=== PATIENT | female | born 1990 | race Caucasian/White ===

== ENCOUNTER 2019-05-12 12:16 | Emergency (ER) | payer OTHER ==
[~2019-05-12] VITALS: Ht 177.8 cm; Wt 88.5 kg
[2019-05-12 12:18] VITALS: BP 122/82
--- NOTE | 2019-05-12 12:22 | NUR ---
Patient ambulated to bed 12. RN evaluating patient at bedside.
[2019-05-12 12:25] VITALS: BP 124/69
--- NOTE | 2019-05-12 12:35 | NUR ---
DR PIZARRO AT BEDSIDE
--- NOTE | 2019-05-12 12:47 | NUR ---
thight lift x 1 wk ago in [facility]---suture right inguinal area opened minimal sanguineous drainage at this time---pt adds she feels light headed . Pt awake ,alert,ambulatory ,pain level at o ,pt clean suture everyday. hx--transgender, rx--taking antibiotic
--- NOTE | 2019-05-12 13:14 | NUR ---
Patient discharged with v/s stable. Written and verbal after care instructions given and explained regarding wound care,pt alert , no c/o pain. Patient verbalized understanding. Ambulatory with steady gait. All questions addressed prior to discharge. Advised to follow up with PMD.
[2019-05-12 13:16] VITALS: BP 124/84
== END 2019-05-12 13:14 | disposition home or self-care (01) ==
LOC: MED 12:16
DX: T81.31XA Disruption of external operation (surgical) wound, not elsewhere classified, initial encounter (principal); F17.200 Nicotine dependence, unspecified, uncomplicated; Z98.890 Other specified postprocedural states; Y83.9 Surgical procedure, unspecified as the cause of abnormal reaction of the patient, or of later complication, without mention of misadventure at the time of the procedure; Y92.89 Other specified places as the place of occurrence of the external cause
CPT/HCPCS: 99283

== ENCOUNTER 2019-08-30 18:26 | Emergency (ER) | payer OTHER ==
[~2019-08-30] VITALS: Ht 175.3 cm; Wt 90.7 kg
[2019-08-30 18:28] VITALS: BP 143/69
[2019-08-30 18:44] VITALS: BP 143/69
== END 2019-08-30 18:43 | disposition home or self-care (01) ==
LOC: MED 18:26
DX: J20.9 Acute bronchitis, unspecified (principal)
CPT/HCPCS: 99283

== ENCOUNTER 2021-08-24 21:28 | Emergency (ER) | payer OTHER ==
[~2021-08-24] VITALS: Ht 177.8 cm; Wt 83.9 kg
[2021-08-24 21:46] VITALS: BP 125/85
--- NOTE | 2021-08-24 21:52 | NUR ---
PT SENT TO LOBBY WAITING FOR BED.
--- NOTE | 2021-08-24 22:54 | NUR ---
PT TAKEN TO BED 04.
--- NOTE | 2021-08-24 22:55 | NUR ---
PT REPORTS FEELING UNWELL. REPORTS ABD BLOATING, NAUSEA AND DIZZINESS. PT STATES SHE FEELS SHE WAS GOING TO PASS OUT. PT STATES SHE WAS A HEAVY DRINKER IN THE PAST AND BEGAN DRINKING ON August AGAIN. PT REPORTS BODY TINGLING. HX:BBL, ETOH RX:ALDACTONE AND ESTROGEN.
[2021-08-24] MEDS ORDERED: FAMOTIDINE 20 MG/2 ML VIAL IVP ONE (23:15)
[2021-08-24] MEDS ORDERED: NACL 0.9% 1,000 ML IV ONE (23:15)
--- NOTE | 2021-08-24 23:30 | NUR ---
X-Ray at bedside.
[2021-08-24 23:33] LABS: BASOPHILS % (AUTO) 0.5 % (0.0-2.0); EOSINOPHILS % (AUTO) 0.7 % (0.0-4.0); HEMATOCRIT 37.8 % (36-48); HEMOGLOBIN 12.4 g/dL (12.0-16.0); LYMPHOCYTES # (AUTO) 2.2 K/uL (2.5-16.5); MEAN CORPUSCULAR HEMOGLOBIN 28 pg (27-31); MEAN CORPUSCULAR HGB CONC 33 g/dL (33-37); MEAN CORPUSCULAR VOLUME 84.3 fL (80-94); MONOCYTES # (AUTO) 0.6 K/uL (0.8-1.0); MONOCYTES % (AUTO) 8.2 % (1.7-9.3); NEUTROPHILS # (AUTO) 3.9 K/uL (1.8-7.7); NEUTROPHILS % (AUTO) 57.6 % (42.2-75.2); PLATELET COUNT (AUTO) 263 K/uL (140-450); RED BLOOD CELL COUNT(AUTO) 4.49 MIL/uL (4.20-5.40); RED CELL DISTRIBUTION WIDTH 15.1 % (11.6-13.7); WHITE BLOOD COUNT (AUTO) 6.7 K/uL (4.8-10.8)
[2021-08-24 23:53] LABS: ALBUMIN 3.4 g/dL (3.4-5.0); ANION GAP 9.1 (8-16); CARBON DIOXIDE 31.2 mmol/L (21-32); CREATININE 0.6 mg/dL (0.6-1.3); POTASSIUM 4.3 mmol/L (3.5-5.1); TOTAL BILIRUBIN 0.2 mg/dL (0.0-1.0)
[2021-08-25 00:49] LABS: APPEARANCE,URINE CLEAR (CLEAR); BILIRUBIN,URINE NEGATIVE (NEGATIVE); BLOOD, URINE NEGATIVE (NEGATIVE); COLOR,URINE YELLOW (YELLOW); LEUKOCYTE ESTERASE ,URINE NEGATIVE (NEGATIVE); NITRITE, URINE NEGATIVE (NEGATIVE); PH,URINE 6.5 (5.0-9.0); UGLUCOSE NEGATIVE (NEGATIVE)
[2021-08-25] MEDS ORDERED: FAMO-90 PO (01:55)
--- NOTE | 2021-08-25 02:00 | NUR ---
DR STAPLES AT BEDSIDE FOR REEXAM
[2021-08-25 02:05] VITALS: BP 125/85
== END 2021-08-25 02:05 | disposition home or self-care (01) ==
LOC: MED 21:28
DX: E86.0 Dehydration (principal); R42 Dizziness and giddiness; R10.13 Epigastric pain; R35.89 Other polyuria; Z98.890 Other specified postprocedural states
CPT/HCPCS: 36415; 71045; 80053; 81003; 83690; 83880; 85025; 93005; 96361; 96374; 99285; J3490; Q0092

== ENCOUNTER 2022-01-02 20:22 | Emergency (ER) | payer OTHER ==
[~2022-01-02] VITALS: Ht 175.3 cm; Wt 86.2 kg
[~2022-01-02 20:22] MED LIST: FAMO-90 PO
[2022-01-02 21:13] VITALS: BP 111/68
--- NOTE | 2022-01-03 00:54 | NUR ---
Jana levi in ED - 01/03/22 at 0055 by [email or web address] Called thrid time- no show in lobby or outside.
--- NOTE | 2022-01-03 00:54 | NUR ---
Patient taken to Chair A.
--- NOTE | 2022-01-03 01:01 | NUR ---
Dr. Benavides examining patient.
[2022-01-03] MEDS ORDERED: AZITHROMYCIN 250 MG TAB PO ONE (01:05)
[2022-01-03] MEDS ORDERED: cefTRIAXone 1,000 MG in LIDOCAINE MPF 1% 2.1 ML IM ONE (01:05)
[2022-01-03] MEDS ORDERED: LIDOCAINE MPF 1% 5 ML ONE (01:08)
[2022-01-03] MEDS ORDERED: cefTRIAXone 1,000 MG VIAL ONE (01:08)
--- NOTE | 2022-01-03 01:22 | NUR ---
Urine sample collected and sent to lab.
[2022-01-03] MEDS ORDERED: DOXY-487 PO (01:37)
[2022-01-03 01:42] VITALS: BP 116/68
== END 2022-01-03 01:42 | disposition home or self-care (01) ==
LOC: MED 20:22
DX: Z20.2 Contact with and (suspected) exposure to infections with a predominantly sexual mode of transmission (principal); Z98.890 Other specified postprocedural states
CPT/HCPCS: 87491; 96372; 99283; J0696; J2001